=== PATIENT | female | born 1935 ===

== ENCOUNTER 2019-10-03 22:59 | Inpatient (IN) | payer OTHER ==
[~2019-10-03] VITALS: Ht 162.6 cm; Wt 83.5 kg
[~2019-10-03 22:59] MED LIST: ADULT ASPIRIN81 MG PO; ALTACE2.5 MG PO; ANTIVERT/2525 MG PO; CARVEDILOL3.125 MG PO; CLEOCIN HCL300 MG PO; GLIMEPIRIDE4 MG PO; SIMVASTATIN80 MG PO; SYNTHROID50 MCG PO; [UNRECOGNIZED DRUG - OTHER] MC
[2019-10-03] MEDS ORDERED: LANTUS SOL100 UNIT/1 (23:57)
--- NOTE | 2019-10-03 23:57 | NUR ---
PACIENTE REFIERE QUE HACE MAS DE BLAISE SEMANA SE ENTERRO UN ANZUELO DE PESCAR EN EL PRIMER DEDO DEL PIE DERECHO. REFIERE QUE EN EL [facility] ([place], [place]) LE RETIRARON EL ANZUELO Y LE SUTURARON EL DEDO Y LE DIERON ANTIBIOTICOS POR VENA Y Y PARA LA CASA. KARI FUE A REMOVERSE LOS PUNTOS. EL DEDO SE OBSERVA HINCHADO Y ENROJECIDO.
[2019-10-03] MEDS ORDERED: COZAAR100 MG (23:59)
--- NOTE | 2019-10-04 01:42 | NUR ---
SE RECIBE FEMINA ALERTA Y ORIENTADA POR SHIRA ESFERAS EN CAMA CON BARANDAS SEGURAS Y ELEVADAS. SE ORIENTA SOBRE TRATAMIENTO. SE LISA MUESTRAS DE LABORATORIO ORDENADAS. SE CANALIZA CON AREA DE VENOPUNCION MARCO A DE EDEMA O ENROJECIMIENTO. SE ADMINISTRAN MEDICAMENTOS ORDENADOS. SE MANTIENE EN OBSERVACION POR CAMBIOS.
--- NOTE | 2019-10-04 08:01 | NUR ---
SE RECIBE PACIENTE ALERTA SE OBSERVA CON H/LOCK PATENTE MARCO A DE EDEMA PACIENTE SE MANTIEIEN OBSERVACION EN CONSULTA CON EL DR. CR .
== END 2019-10-14 20:13 | disposition home or self-care (01) | DRG 863 ==
LOC: ER 22:59 → SEC-K 10-04 09:23 → MEDJ 10-04 09:23 → MEDI 10-04 14:17 → MEDJ 10-04 16:42
PROVIDERS: ADMIT Internal Medicine
PROC: 3E0F73Z Introduction of Anti-inflammatory into Respiratory Tract, Via Natural or Artificial Opening (ICD-10-PCS; principal; 2019-10-08)
PROC: 3E0F7GC Introduction of Other Therapeutic Substance into Respiratory Tract, Via Natural or Artificial Opening (ICD-10-PCS; 2019-10-08)
PROC: 0HBNXZZ Excision of Left Foot Skin, External Approach (ICD-10-PCS; 2019-10-08)
DX: T81.41XA Infection following a procedure, superficial incisional surgical site, initial encounter (principal); L03.115 Cellulitis of right lower limb; N17.9 Acute kidney failure, unspecified; E11.52 Type 2 diabetes mellitus with diabetic peripheral angiopathy with gangrene; I96 Gangrene, not elsewhere classified; J45.901 Unspecified asthma with (acute) exacerbation; J44.1 Chronic obstructive pulmonary disease with (acute) exacerbation; Y92.89 Other specified places as the place of occurrence of the external cause; E03.9 Hypothyroidism, unspecified; E11.65 Type 2 diabetes mellitus with hyperglycemia; I12.9 Hypertensive chronic kidney disease with stage 1 through stage 4 chronic kidney disease, or unspecified chronic kidney disease; E11.22 Type 2 diabetes mellitus with diabetic chronic kidney disease; N18.9 Chronic kidney disease, unspecified; Y83.8 Other surgical procedures as the cause of abnormal reaction of the patient, or of later complication, without mention of misadventure at the time of the procedure; B99.8 Other infectious disease; Z79.4 Long term (current) use of insulin; D64.9 Anemia, unspecified; E87.5 Hyperkalemia
CPT/HCPCS: 73221